=== PATIENT | female | born 1970 | race Hispanic/Latino ===

== ENCOUNTER 2023-01-09 14:51 | Emergency (ER) | payer OTHER ==
[~2023-01-09] VITALS: Ht 149.9 cm; Wt 77.0 kg
[2023-01-09] MEDS ORDERED: NAPROXEN500 MG PO (18:05)
[2023-01-09 18:23] VITALS: BP 129/79
[2023-01-10] MEDS ORDERED: NAPROXEN500 MG PO (09:23)
== END 2023-01-09 18:24 | disposition home or self-care (01) | DRG 204 ==
LOC: ED 14:51
DX: R07.81 Pleurodynia (principal)